=== PATIENT | female | born 1995 | race Caucasian/White ===

== ENCOUNTER 2021-12-29 19:17 | Inpatient (IN) | payer MEDICAID ==
[~2021-12-29] VITALS: Ht 154.9 cm; Wt 99.3 kg
[2021-12-29] MEDS ORDERED: MAGNESIUM 20 G PREMIX (L & D) 500 ML IV SCH (21:30)
[2021-12-29] MEDS ORDERED: LABETALOL HCL 5MG/ML VIAL 20ML IV PRN ×3 (21:30)
[2021-12-29] MEDS ORDERED: RHO(D) IMMUNE GLOBULIN 300 MCG/SYR IM ONE (21:30)
[2021-12-29] MEDS ORDERED: HYDRALAZINE 20MG/ML VIAL IV PRN (21:30)
[2021-12-29] MEDS ORDERED: MAGNESIUM 4 G PREMIX 100 ML IV ONE (21:30)
[2021-12-29] MEDS ORDERED: MORPHINE SULFATE/PF 1MG/ML 10ML AMP ONE (21:56)
[2021-12-29] MEDS ORDERED: FENTANYL CITRATE/PF 50MCG/ML 2ML VIAL ONE (21:56)
[2021-12-29] MEDS ORDERED: ONDANSETRON HCL 4MG/2ML INJ ONE (21:57)
[2021-12-29] MEDS ORDERED: OXYTOCIN 10 UNITS/ML 1ML ONE (21:57)
[2021-12-29] MEDS ORDERED: EPHEDRINE SULFATE 50MG/ML VIAL ONE (21:57)
[2021-12-29] MEDS ORDERED: CLINDAMYCIN 900 MG PREMIX 50 ML IV ONE (21:57)
[2021-12-29 21:58] LABS: CLARITY URINE CLEAR (CLEAR); COLOR URINE YELLOW (YELLOW); KETONES URINE TRACE (NEGATIVE); LEUKOCYTE ESTERASE URINE TRACE (NEGATIVE); NITRITE URINE NEGATIVE (NEGATIVE); OCCULT BLOOD URINE NEGATIVE (NEGATIVE); PH URINE 6.5 (4.5-8.0); PROTEIN URINE 3+ (NEGATIVE); SPECIFIC GRAVITY URINE 1.007 (1.005-1.030); UROBILINOGEN URINE 0.2 E.U./dL (0.2-1.0)
[2021-12-29 22:02] LABS: BASOPHILS % 0.4 % (0.0-2.0); EOSINOPHILS % 0.5 % (0.0-5.0); HEMATOCRIT. 25.1 % (36.0-48.0); HEMOGLOBIN. 7.8 g/dL (12.0-16.0); LYMPHOCYTES % 9.1 % (20.0-50.0); MEAN CORPUSCULAR HEMOGLOBIN 20.9 pg (28.0-32.0); MEAN CORPUSCULAR VOLUME 67.3 fL (81.0-99.0); MEAN PLATELET VOLUME 8.3 fl (7.4-10.4); MONOCYTES % 3.3 % (2.0-8.0); NEUTROPHILS % 86.7 % (40.0-76.0); PLATELET 206 x1000/uL (130-400); RED BLOOD CELL COUNT 3.73 mill/uL (4.2-5.4); RED CELL DISTRIBUTION WIDTH 18.9 % (11.6-14.6)
[2021-12-29 22:05] LABS: CHLORIDE 108 mEq/L (98-107)
[2021-12-29 22:11] LABS: PROTHROMBIN TIME 10.3 sec (9.6-11.0)
[2021-12-29 22:12] LABS: *AMPHETAMINES SCREEN URINE NEGATIVE (NEGATIVE); *BARBITURATES SCREEN URINE NEGATIVE (NEGATIVE); *BENZODIAZEPINES SCREEN URINE NEGATIVE (NEGATIVE); *COCAINE SCREEN URINE NEGATIVE (NEGATIVE); CANNABINOID URINE SCREEN NEGATIVE (NEGATIVE); METHADONE URINE SCREEN NEGATIVE (NEGATIVE); OPIATES URINE SCREEN NEGATIVE (NEGATIVE); PHENCYCLIDINE URINE SCREEN NEGATIVE (NEGATIVE)
[2021-12-29] MEDS ORDERED: CITRIC ACID/SODIUM CITRATE SOLN 30ML UDC PO ONE (22:15)
[2021-12-29] MEDS: DEXT 5%/LACTATED RINGERS 1,000 ML IV SCH (22:33)
[2021-12-29 22:51] LABS: PLATELET ESTIMATE NORMAL
[2021-12-30] VITALS (8 sets, daily range): BP systolic 116–158; BP diastolic 75–96
[2021-12-30] MEDS ORDERED: IBUPROFEN 400MG TABLET PO PRN (00:15)
[2021-12-30] MEDS ORDERED: RHO(D) IMMUNE GLOBULIN 300 MCG/SYR IM PRN (00:15)
[2021-12-30] MEDS ORDERED: LANOLIN OINT 7GM TUBE TOP PRN (00:15)
[2021-12-30] MEDS ORDERED: BISACODYL 10MG SUPP PR PRN (00:15)
[2021-12-30] MEDS ORDERED: ACETAMINOPHEN WITH CODEINE 300/30MG TABLET PO PRN (00:15)
[2021-12-30] MEDS ORDERED: DIPHENHYDRAMINE 25MG CAPSULE PO PRN (00:15)
[2021-12-30] MEDS ORDERED: OXYTOCIN 30 UNITS/500ML NS PMX 500 ML IV SCH (00:15)
[2021-12-30] MEDS ORDERED: ONDANSETRON HCL 4MG/2ML INJ IV PRN (00:15)
[2021-12-30] MEDS ORDERED: OXYCODONE HCL/ACETAMINOPHEN 5/325MG TABLET PO PRN (00:15)
[2021-12-30] MEDS ORDERED: HEMORRHOIDAL SUPP PR PRN (00:15)
[2021-12-30] MEDS ORDERED: METOCLOPRAMIDE HCL 10MG/2ML VIAL ONE (00:16)
[2021-12-30] MEDS ORDERED: OXYTOCIN 10 UNITS/ML 1ML ONE ×2 (00:23→00:25)
[2021-12-30] MEDS ORDERED: DIPHENHYDRAMINE 50MG/ML VIAL ONE (00:26)
[2021-12-30] MEDS ORDERED: BUTORPHANOL TARTRATE 2 MG/ML VIAL IV PRN (01:15)
[2021-12-30] MEDS ORDERED: NALOXONE HCL 0.4 MG/ML 1ML VIAL IV PRN (01:15)
[2021-12-30] MEDS ORDERED: DIPHENHYDRAMINE 50MG/ML VIAL IV PRN (01:15)
[2021-12-30] MEDS: SIMETHICONE 80MG TABLET CHEW PO SCH ×3 (08:44→22:14)
[2021-12-30] MEDS: PRENATAL VIT/FE FUMARATE/FA TABLET PO SCH (08:44)
[2021-12-30] MEDS: DEXT 5%/LACTATED RINGERS 1,000 ML IV SCH (08:45)
[2021-12-30 10:29] LABS: HEMATOCRIT. 26.7 % (36.0-48.0); HEMOGLOBIN. 8.7 g/dL (12.0-16.0); MEAN CORPUSCULAR HEMOGLOBIN 23.5 pg (28.0-32.0); MEAN CORPUSCULAR VOLUME 72.5 fL (81.0-99.0); MEAN PLATELET VOLUME 8.1 fl (7.4-10.4); PLATELET 168 x1000/uL (130-400); RED BLOOD CELL COUNT 3.69 mill/uL (4.2-5.4); RED CELL DISTRIBUTION WIDTH 22.4 % (11.6-14.6)
[2021-12-30] MEDS: IBUPROFEN 800MG TABLET PO PRN ×2 (13:34→22:15)
[2021-12-30] MEDS: CLINDAMYCIN 900 MG PREMIX 50 ML IV SCH ×2 (14:01→22:14)
[2021-12-30 14:55] LABS: NUCLEATED RED BLOOD CELLS 1 /100 WBC; PLATELET ESTIMATE NORMAL
[2021-12-30] MEDS: DOCUSATE SODIUM 100MG CAPSULE PO SCH (22:14)
[2021-12-31 04:00] VITALS: BP 133/89
[2021-12-31] MEDS: CLINDAMYCIN 900 MG PREMIX 50 ML IV SCH ×3 (06:05→23:12)
[2021-12-31 06:09] LABS: HBSAG SCREEN Negative (Negative)
[2021-12-31 07:07] LABS: BASOPHILS % 0.1 % (0.0-2.0); HEMATOCRIT. 22.1 % (36.0-48.0); HEMOGLOBIN. 7.2 g/dL (12.0-16.0); LYMPHOCYTES % 7.9 % (20.0-50.0); MEAN CORPUSCULAR HEMOGLOBIN 23.5 pg (28.0-32.0); MEAN CORPUSCULAR VOLUME 72.8 fL (81.0-99.0); MEAN PLATELET VOLUME 8.3 fl (7.4-10.4); MONOCYTES % 7.8 % (2.0-8.0); NEUTROPHILS % 84.2 % (40.0-76.0); PLATELET 150 x1000/uL (130-400); RED BLOOD CELL COUNT 3.04 mill/uL (4.2-5.4); RED CELL DISTRIBUTION WIDTH 22.5 % (11.6-14.6)
[2021-12-31 08:00] VITALS: BP 139/97
[2021-12-31] MEDS: FERROUS SULFATE 325MG TABLET PO SCH ×2 (08:27→15:04)
[2021-12-31] MEDS: SIMETHICONE 80MG TABLET CHEW PO SCH ×3 (08:27→21:07)
[2021-12-31] MEDS: IBUPROFEN 800MG TABLET PO PRN ×3 (08:28→21:08)
[2021-12-31] MEDS: PRENATAL VIT/FE FUMARATE/FA TABLET PO SCH (08:28)
[2021-12-31 15:50] VITALS: BP 128/84
[2021-12-31 19:30] VITALS: BP 127/73
[2021-12-31] MEDS: DOCUSATE SODIUM 100MG CAPSULE PO SCH (21:07)
[2022-01-01 04:00] VITALS: BP 132/86
[2022-01-01] MEDS: DEXT 5%/LACTATED RINGERS 1,000 ML IV SCH (04:08)
[2022-01-01 08:00] VITALS: BP 132/98
[2022-01-01] MEDS: FERROUS SULFATE 325MG TABLET PO SCH ×2 (08:50→15:28)
[2022-01-01] MEDS: PRENATAL VIT/FE FUMARATE/FA TABLET PO SCH (08:50)
[2022-01-01] MEDS: IBUPROFEN 800MG TABLET PO PRN ×3 (08:50→22:08)
[2022-01-01] MEDS: SIMETHICONE 80MG TABLET CHEW PO SCH ×3 (08:50→22:08)
[2022-01-01 16:00] VITALS: BP 129/88
[2022-01-01 19:30] VITALS: BP 139/84
[2022-01-01] MEDS: DOCUSATE SODIUM 100MG CAPSULE PO SCH (22:08)
[2022-01-02 04:00] VITALS: BP 105/57
[2022-01-02 08:00] VITALS: BP 139/93
[2022-01-02] MEDS: SIMETHICONE 80MG TABLET CHEW PO SCH (08:21)
[2022-01-02 08:22] VITALS: BP 105/57
[2022-01-02] MEDS: FERROUS SULFATE 325MG TABLET PO SCH (08:22)
[2022-01-02] MEDS: PRENATAL VIT/FE FUMARATE/FA TABLET PO SCH (08:22)
[2022-01-02] MEDS: IBUPROFEN 800MG TABLET PO PRN (08:22)
[2022-01-02] MEDS ORDERED: IBUP-2030 PO (14:24)
[2022-01-02] MEDS ORDERED: FERR-63 PO (14:24)
== END 2022-01-02 15:40 | disposition home or self-care (01) | DRG 540 ==
LOC: 8 EST LDRP 19:17 → 8EST 12-30 05:25
PROVIDERS: ADMIT Obstetrics & Gynecology; ATTEND Obstetrics & Gynecology
PROC: 10D00Z1 Extraction of Products of Conception, Low, Open Approach (ICD-10-PCS; principal; 2021-12-29)
PROC: 30233N1 Transfusion of Nonautologous Red Blood Cells into Peripheral Vein, Percutaneous Approach (ICD-10-PCS; 2021-12-30)
DX: O13.4 Gestational [pregnancy-induced] hypertension without significant proteinuria, complicating childbirth (principal); Z37.2 Twins, both liveborn; O34.211 Maternal care for low transverse scar from previous cesarean delivery; O30.003 Twin pregnancy, unspecified number of placenta and unspecified number of amniotic sacs, third trimester; Z20.822 Contact with and (suspected) exposure to COVID-19; O99.02 Anemia complicating childbirth; O32.1XX2 Maternal care for breech presentation, fetus 2; Z3A.37 37 weeks gestation of pregnancy; Z88.0 Allergy status to penicillin
CPT/HCPCS: 36415; 80053; 80305; 81003; 84550; 85025; 85384; 86592; 86703; 86762; 86850; 86900; 86920; 87340; 87426; 88307; 99281; G0378; J0360; J1200; J2274; J2405; J2765; J3010; J3475; J3490; P9016; A4315